=== PATIENT | male | born 1990 | race Caucasian/White ===

== ENCOUNTER → 2024-07-11 | Outpatient (CLI) | payer BC, OTHER ==
[2024-07-11 15:46] LABS: ALT 37 U/L (10-49); AST 27 U/L (14-35); Albumin 4.6 g/dL (3.8-4.9); Albumin/Globulin Ratio 1.84 Ratio (1.60-3.17); Alkaline Phosphatase 76 U/L (41-126); Blood Urea Nitrogen 14.8 mg/dL (9.0-27.0); Calcium 9.9 mg/dL (8.7-10.3); Carbon Dioxide 27.8 mmol/L (21.6-31.8); Chloride 102 mmol/L (96-109); Chol/HDL Ratio 5.35 Ratio; Globulin 2.5 g/dL (1.6-3.3); Glucose 98 mg/dL (70-110); LDL Cholesterol,Calculated 124.5 mg/dL (0.0-131.0); Potassium 4.8 mmol/L (3.5-5.5); Sodium 139 mmol/L (135-145); T4, Free (Free Thyroxine) 1.54 ng/dL (0.80-1.80); Total Bilirubin 0.3 mg/dL (0.3-1.2); Total Protein 7.1 g/dL (6.2-8.2)
[2024-07-11 15:58] LABS: Appearance,Urine Clear (Clear); Bilirubin,Urine Negative (Negative); Blood,Urine Negative (Negative); Color,Urine Yellow (Yellow); Ketones,Urine Negative (Negative); Nitrite,Urine Negative (Negative); Specific Gravity,Urine 1.021 (1.001-1.030); Urobilinogen,Urine 0.2 E.U./DL
[2024-07-11 17:01] LABS: Basophils # (A) 0.03 X 10*3/uL (0.00-0.10); Basophils % (A) 0.5 %; Eosinophils # (A) 0.11 X 10*3/uL (0.04-0.35); HCT 44.8 % (39.6-50.0); HGB 15.2 g/dL (13.0-17.0); Lymphocytes # (A) 2.58 X 10*3/uL (0.90-5.00); MCH 29.1 pg (27.0-32.0); MCHC 33.9 g/dL (32.0-37.0); MCV 85.8 FL (80.0-97.0); Mean Platelet Volume 9.7 FL (9.5-12.2); Monocytes # (A) 0.57 X 10*3/uL (0.20-1.00); Monocytes % (A) 10.4 %; NRBC Per 100 WBC 0 X 10*3/uL (0.00-0.01); Neutrophils # (A) 2.18 X 10*3/uL (1.80-7.70); Neutrophils % (A) 39.7 %; Platelet Count 299 X 10*3/uL (140-440); RBC 5.22 X 10*6/uL (4.40-5.60); RDW 12.1 % (11.5-14.5); WBC 5.49 X 10*3/uL (4.50-10.00)
== END | disposition home or self-care (01) ==
LOC: LABWHC1 09:32
PROVIDERS: ATTEND Family Medicine
DX: Z00.00 Encounter for general adult medical examination without abnormal findings
CPT/HCPCS: 36415; 80053; 80061; 81003; 82306; 83825; 84439; 84443; 85025

== ENCOUNTER → 2024-08-22 | Outpatient (CLI) | payer BC, OTHER ==
--- NOTE | 2024-08-24 15:18 | MR ---
EXAMINATION TYPE: MR lumbar spine wo con DATE OF EXAM: 08/22/2024 8:46 PM COMPARISON: 08/15/2024. CLINICAL INDICATION: Male, 33 years old with history of M54.16, M54.50; PHH, Lower back pain, center and into right hip TECHNIQUE: Multi planar, multi sequence imaging was performed utilizing: T1-weighted, T2-weighted, a nd turbo inversion recovery imaging of the lumbar spine. IV Contrast: cc . (None if empty) FINDINGS: Alignment: The lumbar vertebral bodies have preserved heights and alignment. Cord: The conus medullaris and the distal spinal cord appear unremarkable with regards to their signa l intensity and morphology. Bones/Discs: Postsurgical changes at L4-L5 susceptibility artifact. Mild degeneration changes through out the spine with osteophyte formation and facet joint arthropathy. Intervertebral disc signal is ma intained. No abnormal inversion recovery signal to suggest bony edema. T12-L1: No evidence of significant spinal canal stenosis or neural foraminal stenosis. L1-L2: No evidence of significant spinal canal stenosis or neural foraminal stenosis. L2-L3: No evidence of significant spinal canal stenosis or neural foraminal stenosis. L3-L4: No evidence of significant spinal canal stenosis or neural foraminal stenosis. L4-L5: Susceptibility artifact limits evaluation at this level. The spinal canal and neural foramen a ppear patent. L5-S1: Susceptibility artifact limits evaluation at this level. The spinal canal and neural foramen a ppear patent. Narrowing of the right neural foramen greater than left at least moderate grade No significant spinal canal or neural foraminal stenosis in the remainder of the visualized levels. Other findings: None. IMPRESSION: 1. Postsurgical changes L4-L5 with moderate right neural foraminal stenosis. No additional evidence for significant spinal canal neural foraminal stenosis. No evidence for disc herniation. 2. Mild disc degeneration changes throughout the spine. [facility], , 08/24/2024 3:16 PM
== END | disposition home or self-care (01) ==
LOC: RADMRIMAIN 20:15
PROVIDERS: ATTEND Orthopaedic Surgery
CPT/HCPCS: 72148

== ENCOUNTER → 2024-09-01 | Outpatient (CLI) | payer BC, OTHER ==
[~2024-09-01] MED LIST: ATROPINE SULFATE 0.1 MG/ML 10ML SYRINGE ONE; DOBUTamine DRIP for NUC MED 500 MG in DEXTROSE/WATER 1 250ML.BAG IV PRN; DOBUTamine DRIP for NUC MED 500 MG/250 ML BAG IV ONE
--- NOTE | 2024-09-01 17:21 | CA ---
Dobutamine Stress Echocardiogram Report Shamir Campos Age: 33 Gender: M : 1990 Exam Date: 09/01/2024 11:40 Exam Location: [place] [facility] Ordering Physician: Sukhdeep Walker DO Referring Physician: MAGNUS, Optometric Tech: Wade Bennett Technologist: Ht (in): 69 Wt (lb): 193 Procedure CPT: Indication: R07.9 CHEST PAIN ICD-9 Codes: Rhythm: Patient History: Chest pain Cardiac Medications: Medications in past 24 hours: Contrast: Total Dose (mL): Stress Results Protocol: Dobutamine Peak Dose (???g/kg/min): 40 Duration (min:sec): Atropine:(mg) Target HR: 160 Double Product: 57826 Resting HR: 68 Resting BP: 121 / 77 Peak HR: 155 Peak BP: 174 / 45 Max Predicted HR: 188 82 % Max Predicted HR Stress Summary: BP Response: Reason for Termination: Max dose Cardiac Symptoms: Chest pain #2 that resolved ECG Analysis Resting EKG: Normal sinus rhythm normal axis normal intervals Stress EKG: Patient was given intravenous dobutamine per protocol achieving 82% of predicted maximal heart rate without chest pain or diagnostic ST segment depression Arrhythmia: Echo Analysis Base Echo Analysis: Normal left ventricular size wall motion systolic function Low Echo Anaylsis: Normal Peak Echo Analysis: Normal hyperdynamic response Recovery Echo: Normal MEASUREMENTS (Male/Female) Normal Values CONCLUSIONS Inconclusive dobutamine stress echo due to inability to attain target heart rate 8082% of predicted maximal heart rate there is no dobutamine induced wall motion abnormality Dr. Watson Martinez MD (Electronically Signed) Final Date: 01 September 2024 17:20
== END | disposition home or self-care (01) ==
LOC: RADNMMAIN 09:47
PROVIDERS: ATTEND Family Medicine
DX: R07.9 Chest pain, unspecified (principal)
CPT/HCPCS: 93351

== ENCOUNTER → 2024-09-14 | Outpatient (CLI) | payer BC, OTHER ==
--- NOTE | 2024-09-14 11:28 | CT ---
EXAMINATION TYPE: CT lumbar spine wo con CT DLP: 785.9 mGycm, Automated exposure control for dose reduction was used. DATE OF EXAM: 09/14/2024 11:07 AM COMPARISON: MRI lumbar spine 08/22/2024. CLINICAL INDICATION:Male, 33 years old with history of M54.16 RADICULOPATHY M48.061; PHH, back pain TECHNIQUE: Multiple axial images were obtained from the midportion of T11 through the sacroiliac juana nts. Soft tissue and bone windows in coronal and sagittal planes were obtained and reviewed. Contrast used: none. Oral contrast used: none. FINDINGS: Alignment: There are 5 lumbar type vertebral bodies within normal alignment. Bone: Postsurgical changes from posterior fusion with bilateral pedicular screws and rods and disc s pacer involving L5-S1. Hardware creates streak artifact which limits evaluation. Hardware appears int act with appropriate alignment. No evidence of fracture is identified. Discs: T12-L1: No spinal canal or neural foraminal stenosis is identified. L1-L2: No spinal canal or neural foraminal stenosis is identified. L2-L3: No spinal canal or neural foraminal stenosis is identified. L3-L4: Minimal broad-based disc bulge without significant effacement of the anterior thecal sac. No n eural foraminal stenosis. L4-L5: Minimal broad-based disc bulge without significant effacement of the anterior thecal sac. Mini mal bilateral neural foraminal narrowing. L5-S1: Surgical changes without evidence of significant spinal canal. Minimal bilateral neural forami nal narrowing. Other: None IMPRESSION: 1. No evidence for acute spinal fracture. 2. Postsurgical changes from posterior fusion at L5-S1. Hardware appears intact with proper alignment . 2. Minimal lower lumbar spine degenerative disc disease. [facility], , 09/14/2024 11:26 AM
== END | disposition home or self-care (01) ==
LOC: RADCTMAIN 10:51
PROVIDERS: ATTEND Orthopaedic Surgery
DX: M51.16 Intervertebral disc disorders with radiculopathy, lumbar region (principal); M48.061 Spinal stenosis, lumbar region without neurogenic claudication; Z98.1 Arthrodesis status
CPT/HCPCS: 72131

== ENCOUNTER → 2024-11-07 | Outpatient (CLI) | payer BC, OTHER ==
[2024-11-07 11:37] VITALS: BP 138/91; PULSE 70; RESP 19; TEMP 96.8
--- NOTE | 2024-11-07 15:44 | P.PAINPG ---
PQRS Measure Charge Sheet Comment: HISTORY OF PRESENT ILLNESS: A 34 yr old male as a referral from Dr Rowland presents today w severe and chronic LBP > 1 yr secondary to L3-L5 radiculopathy, L5-S1 post laminectomy syndrome for evaluation. Pt states pain level is provoked at 6 /10 in intensity, constant, localized in the R lumbar spine, predominantly axial, achy in character w occasional shooting pain towards the RLE. Pain is provoked by hard impact activity. Pain is alleviated by PT x 6 wks which ended in 2022, physician guided home exercises 4-5 times weekly since 2022, ice, medications (muscle relaxer), repositioning and rest . Oswestry axial pain score at 24. PMH: OA, Hypothyroidism, Vitamin D Deficiency PSH: L5-S1 TLIF w CAGE SH: Negative x3 FH: Non contributory All: See list Meds: See list REVIEW OF ORGAN SYSTEMS: CONSTITUTIONAL: No fevers or chills. No recent weight loss. NEUROLOGICAL: + numbness and tingling along the distal extremities. No seizure disorders or headaches. MUSCULOSKELETAL: + pain PSYCHIATRIC: Denies current depression or suicidal thoughts. Physical Examinations : Constitutional : Cooperative , not in acute distress . Neurologic : Cranial nerve II to XII intact. No focal neurological deficits. Psychiatric : alert & oriented x 3. Matching mood & appropriate affect. Judgment & insight intact. Musculoskeletal : Cervical Spine Motor strength in the deltoid and biceps: Normal right side. Normal Left side Motor strength biceps and the wrist extensors: Normal right side . Normal left side Motor strength in the triceps muscle: Normal right side. Normal left side Deep tendon reflexes: Normal at the biceps. Normal at Brachioradialis. Normal at triceps Vertebral body tenderness to deep palpation over Cervical facet loading test: positive bilaterally Spurling test: positive bilaterally Neck distraction test: positive bilaterally Niko sign: positive bilaterally Lumbar spine Motor strength lower extremities ,thigh and legs 5/5 Right side , 5/5 Left side Deep tendon reflexes : Normal Knee Jerk. Normal Ankle Jerk Vertebral body tenderness over L5 Cm Test positive R L5-S1 Lumbar facet Loading Test: positive Right / positive Left Range of motion of the lumbar spine Flexion 30 degrees, extension 10 degrees Straight Leg Raise test: Left/ Right positive at degrees Warren test: positive right / positive left. Severe tenderness over the Sacroiliac joint on the Right / Left sides Gaenslen test: positive bilaterally Seated flexion test: positive bilaterally. Sacral spine : Severe tenderness over the Sacroiliac joint: right side / left side Range of motion: Flexion of the lumbar spine <60 degrees Range of motion: Extension of the lumbar spine <20 degrees Gaenslen's Test positive Warren test: positive right side / left side Thigh Thrust Test Sacral Thrust Test Imaging: CT non contrast lumbar spine from 09/14/24 reviewed Assessment/ Plan : L3-L5 radiculopathy, L5-S1 post laminectomy syndrome Recommendation of R TFESI L5-S1 #1. Risks, benefits of procedure discussed and patient verbalized understanding. Admits to anti- coagulant use or medical history of diabetes. Protocol for discontinuation/ continuation of medications lorenzo procedure discussed. All questions answered. I have spent greater than 30 minutes on patient care today. Dr Duffy was available by phone for the evaluation of this patient. The time was used to review the medical records including relevant urine studies and Prescription history (MAPs), review of the available imaging, evaluation and examination of the patient, coordination of care with the medical staff and if applicable referring physicians, as well as creation of the medical record Controlled Substance Measures - Controlled Substance Measures Is patient prescribed a controlled substance at discharge?: No
== END ==
LOC: PNWHC3 10:42
PROVIDERS: ATTEND Specialist
DX: M96.1 Postlaminectomy syndrome, not elsewhere classified (principal); M47.27 Other spondylosis with radiculopathy, lumbosacral region
CPT/HCPCS: 99211

== ENCOUNTER 2024-11-15 07:42 | Day surgery (SDC) | payer OTHER ==
[~2024-11-15 07:42] MED LIST changes: -ATROPINE SULFATE 0.1 MG/ML 10ML SYRINGE ONE; -DOBUTamine DRIP for NUC MED 500 MG in DEXTROSE/WATER 1 250ML.BAG IV PRN; -DOBUTamine DRIP for NUC MED 500 MG/250 ML BAG IV ONE; +LACTATED RINGERS 1,000 ML IV SCH
[2024-11-15 08:07] VITALS: TEMP 98
[2024-11-15] MEDS ORDERED: IOPAMIDOL M300 15ML VIAL ONE (08:27)
[2024-11-15] MEDS ORDERED: DEXAMETHASONE SOD PHOSPHATE 10 MG/ML 1 ML VIAL ONE (08:27)
[2024-11-15 08:54] VITALS: RESP 16
--- NOTE | 2024-11-15 08:57 | P.PCN ---
Description of Procedure: PREOPERATIVE DIAGNOSIS: 1-Lumbar radiculopathy . 2-lumbar degenerative disc disease. 3-lumbar spondylosis with lumbar facet arthropathy without myelopathy POSTOPERATIVE DIAGNOSIS: 1-lumbar radiculopathy. 2-lumbar degenerative disc disease. 3-lumbar spondylosis with facet arthropathy without myelopathy PROCEDURE 1. Transforaminal epidural steroid injection under fluoroscopic guidance at RIGHT L5-S1 level. (Fluoroscopy images stored on file in the radiology Department ) 2. Lumbar epidurogram . ANESTHESIA: Local with 1% lidocaine 5 ml. subcutaneously. Continuous pulse ox, EKG, blood pressure and verbal communication was maintained with the patient. EBL: Minimal PROCEDURE INDICATION: The patient with low back pain and radiculopathy symptoms unresponsive to conservative treatment. The patient was seen and identified in the preoperative area. Risks, benefits, complications, and alternatives were discussed with the patient. The patient agreed to proceed with the procedure and signed the consent. IV was started, and vital signs were stable. PROCEDURE DESCRIPTION / TECHNIQUE: After getting consent, patient was taken to the OR and time out was completed. The patient was placed in the prone position on procedure table and a pillow was placed under the abdomen to reduce lumbar lordosis. The lumbosacral area was prepped and draped in the usual sterile fashion. Critical pause was taken. After injecting 5 mL of plain 1% lidocaine subcutaneously, under oblique view of the fluoroscope, a 22-gauge spinal needle was introduced under the tunnel view of the fluoroscope on the RIGHT side and the needle was advanced so that the tip of the needle was at the posterior inferior quadrant of the intervertebral foramen at the lateral view of the fluoroscope and in the lateral third of the facet column in the AP view of the fluoroscope. Negative CSF, negative blood, negative paresthesia. After needle position confirmation by AP and cross table lateral view, 3 mL of Isovue-M 200 contrast was injected under continuous fluoroscope. No contrast was noted in the intrathecal or intravascular space. The epidurogram was noted. Again after repeated negative aspiration 2.5 mL solution was injected which consists 0.5 mL of normal saline mixed with 2 mL of 20 mg dexamethasone. Needle was removed . At the end of the procedure, skin was cleansed, and bandages were applied. DISPOSITION / PLANS: No complication. The patient tolerated the procedure well. The patient was placed in a supine position and transferred to the recovery area in a stable condition for observation. There was no evidence of lower extremity motor or sensory deficit after the procedure. Patient was discharged from the recovery room after meeting discharge criteria. Home discharge instructions were given to the patient by the staff. The patient was reexamined prior to discharge.
--- NOTE | 2024-11-15 09:02 | FL ---
EXAMINATION TYPE: FL guided pain mgmt statistic DATE OF EXAM: 11/15/2024 CLINICAL HISTORY: Low back pain. TECHNIQUE: Fluoroscopy. COMPARISON: None. FINDINGS: Fluoroscopic guidance was provided during pain relief procedure performed by Dr. Seaman. A total of 24.4 seconds of fluoroscopic time was utilized during the procedure and two spot images are acquired. Images acquired shows needle localization at the lumbosacral junction of the midline with postsurgical changes at this level noted. TOTAL DAP = 0.35011 mGy x m2. IMPRESSION: As Above. [facility], , 11/15/2024 9:00 AM
[2024-11-15 09:08] VITALS: BP 139/79; PULSE 85
== END 2024-11-15 09:24 | disposition home or self-care (01) ==
LOC: ORPAIN 07:42
PROVIDERS: ATTEND Pain Medicine Interventional Pain Medicine
DX: M47.26 Other spondylosis with radiculopathy, lumbar region (principal); M51.16 Intervertebral disc disorders with radiculopathy, lumbar region
CPT/HCPCS: 64483; J1100; Q9967

== ENCOUNTER → 2024-11-29 | Outpatient (CLI) | payer OTHER ==
[2024-11-29 14:38] VITALS: BP 121/75; PULSE 72; RESP 16; TEMP 98.1
--- NOTE | 2024-11-29 16:33 | P.SLEEP ---
History of Present Illness H&P Date: 11/29/24 This is a 34-year-old , who is coming in to establish care regarding his obstructive sleep apnea. The patient was diagnosed having CJ in the [facility] more than a year ago. The patient was given a ResMed 10 CPAP unit and based on my review of the compliance data on his machine, the patient has not utilized the machine over the past 1 year. The patient's original polysomnography report is not available. He apparently had a home sleep study back then at the time of diagnosis. He did benefit from CPAP therapy and he is wearing to go back on treatment as long as he has the appropriate mask and tubing and supplies. I noted that the patient has been using DreamWear nasal mask medium sizeand a headgear. He is APAP is set at a pressure of 4/16 cm of water. Based on the 2 days of usage on his machine, the patient had a 95th percentile pressure of 7 and his AHI was less than 1. The patient is very much interested in going back on treatment. No recent weight gain. Now that he is off treatment, his snoring and is feeling more tired and sleepy during the day. He goes to bed between 8 and 10 PM and wakes up at 3 AM in the morning. He carries the same sleep schedule on weekends. His current De Graff score is at 3. He sleeps on his side. No sleep paralysis. No hallucinations. No cataplexy. No excessive utilization of alcoholic or caffeinated beverages. No nocturnal heartburn or chest pain. No anxiety or panic attacks. No depression. He has a history of Khadijah's thyroiditis and the patient is currently on thyroid hormone replacement. He has also undergone previous back surgery involving the cervical spine and lumbar spine with fusions. Review of Systems Constitutional: Reports daytime sleepiness, Reports fatigue Eyes: denies as per HPI, denies blurred vision, denies bulging eye, denies decreased vision, denies diplopia, denies discharge, denies dry eye, denies irritation, denies itching, denies pain, denies photophobia, denies loss of peripheral vision, denies loss of vision, denies tunnel vision/blind spots Ears: deny: decreased hearing, ear discharge, earache, tinnitus Ears, nose, mouth and throat: Reports as per HPI Breasts: absent: as per HPI, gynecomastia Cardiovascular: Reports as per HPI Respiratory: Reports sleep apnea, Reports snoring Gastrointestinal: Reports as per HPI Genitourinary: Reports as per HPI Musculoskeletal: Reports low back pain Musculoskeletal: absent: ankle pain, ankle stiffness, ankle swelling, as per HPI, elbow pain, elbow stiffness, elbow swelling, foot pain, foot stiffness, foot swelling, hand pain, hand stiffness, hand swelling, hip pain, hip stiffness, hip swelling, knee pain, knee stiffness, knee swelling, shoulder pain, shoulder stiffness, shoulder swelling, wrist pain, wrist stiffness, wrist swelling Integumentary: Reports as per HPI Neurological: Reports as per HPI, Reports gait dysfunction Psychiatric: Reports hypersomnia, Reports sleep disturbances Endocrine: Reports as per HPI, Reports fatigue Hematologic/Lymphatic: Reports as per HPI Past Medical History Past Medical History: Hearing Disorder / Deafness, Hyperlipidemia, Sleep Apnea/CPAP/BIPAP, Thyroid Disorder Additional Past Medical History / Comment(s): juana tinnitus, partial hearing loss, no hearing aids; has CPAP but not currently using; no meds for high chol., degenertative arthritis History of Any Multi-Drug Resistant Organisms: None Reported Past Surgical History: Back Surgery Additional Past Surgical History / Comment(s): 2 spinal fusions Jul 2023 & December 2022; vasectomy; lasik eye surg; wisdom teeth removed Past Anesthesia/Blood Transfusion Reactions: Previous Problems w/ Anesthesia Additional Past Anesthesia/Blood Transfusion Reaction / Comment(s): woke up during back surg & then hard to wake up after back surg; intermittent periods of stopping breathing and later diagnosed with sleep apnea Past Psychological History: Anxiety Smoking Status: Never smoker Past Alcohol Use History: Rare Past Drug Use History: None Reported - Past Family History Mother Family Medical History: Thyroid Disorder Medications and Allergies Home Medications Medication Instructions Recorded Confirmed Type Levothyroxine Sodium [Synthroid] 150 mcg PO DAILY 11/11/24 11/29/24 History diazePAM [Valium] 5 mg PO ONCE 11/15/24 11/15/24 History Allergies Allergy/AdvReac Type Severity Reaction Status Date / Time No Known Allergies Allergy Verified 11/15/24 07:57 Physical Exam Vitals: Vital Signs Temp Pulse Resp BP Pulse Ox 11/29/24 14:37 98.1 F 72 16 121/75 98 Intake and Output 11/29/24 11/29/24 11/29/24 06:59 14:59 22:59 Other: Weight 89.811 kg The patient appeared well nourished and normally developed. Vital signs as documented. Head exam is unremarkable. No scleral icterus or corneal arcus noted. Neck is without jugular venous distension, thyromegaly, or carotid bruits. Carotid upstrokes are brisk bilaterally. Lungs are clear to auscultation and percussion. Cardiac exam reveals the PMI to be normally sized and situated. Rhythm is regular. First and second heart sounds normal. No murmurs, rubs or gallops. Abdominal exam reveals normal bowel sounds, no masses, no organomegaly and no aortic enlargement. Extremities are nonedematous and both femoral and pedal pulses are normal. Examination of the skin revealed no evidence of significant rashes, suspicious appearing nevi or other concerning lesions. Neurologically, the patient is awake and alert and the patient does not have any focal neurological deficit. Cranial nerves are essentially intact. Assessment and Plan Plan: Obstructive sleep apnea. Diagnosis established years back in the [facility]. Original polysomnography is not available. The patient has a APAP machine set at a pressure of 4/16 cm of water along with a DreamWear nasal mask. The patient states that while on treatment, he was feeling less sleepy and tired and fatigued. He is interested in going back on his treatment as long as he has been appropriate supplies. No recent weight gain. Hyperlipidemia Partial hearing loss Chronic back pain and the patient has undergone a cervical spine and lumbar spine fusion Khadijah's thyroiditis, currently on thyroid hormone replacement. Plan I checked the patient's CPAP unit. The machine is functional. I am going to switch to APAP mode to a minimum pressure of 4 and a maximum pressure of 8 I am going to provide the DreamWear nasal mask medium size Patient will go back on using his CPAP unit and meanwhile a home sleep study will be ordered to reestablish the diagnosis and its severity. Maintain good sleep hygiene measures Maintain regular sleep schedule Will continue to follow Sleep Note - Sleep Data ESS Total: 3 - Sleep Note Sleep Note: Temperature: 98.1 F Pulse Rate: 72 Respiratory Rate: 16 Blood Pressure: 121/75 SpO2: 98 Height: 67 ft 6 in Weight: 89.811 kg BMI: Neck Circumference: 15.5
== END ==
LOC: 3 N SLEEP 13:41
PROVIDERS: ATTEND Internal Medicine Critical Care Medicine
DX: G47.33 Obstructive sleep apnea (adult) (pediatric) (principal); E78.5 Hyperlipidemia, unspecified; H91.90 Unspecified hearing loss, unspecified ear; M54.50 Low back pain, unspecified; G89.29 Other chronic pain; M43.26 Fusion of spine, lumbar region; M43.22 Fusion of spine, cervical region; E06.3 Autoimmune thyroiditis; Z99.89 Dependence on other enabling machines and devices
CPT/HCPCS: 99211

== ENCOUNTER → 2024-12-08 | Outpatient (CLI) | payer OTHER ==
--- NOTE | 2024-12-18 23:00 | P.PCN ---
Date of Procedure: 12/08/24 Operative Findings: This is a 34-year-old , who is coming in to establish care regarding his obstructive sleep apnea. The patient was diagnosed having CJ in the [facility] more than a year ago. The patient was given a ResMed 10 CPAP unit and based on my review of the compliance data on his machine, the patient has not utilized the machine over the past 1 year. The patient's original polysomnography report is not available. He apparently had a home sleep study back then at the time of diagnosis. He did benefit from CPAP therapy and he is wearing to go back on treatment as long as he has the appropriate mask and tubing and supplies. I noted that the patient has been using DreamWear nasal mask medium sizeand a headgear. He is APAP is set at a pressure of 4/16 cm of water. Based on the 2 days of usage on his machine, the patient had a 95th percentile pressure of 7 and his AHI was less than 1. The patient is very much interested in going back on treatment. No recent weight gain. Now that he is off treatment, his snoring and is feeling more tired and sleepy during the day. He goes to bed between 8 and 10 PM and wakes up at 3 AM in the morning. He carries the same sleep schedule on weekends. His current [place] score is at 3. He sleeps on his side. No sleep paralysis. No hallucinations. No cataplexy. No excessive utilization of alcoholic or caffeinated beverages. No nocturnal heartburn or chest pain. No anxiety or panic attacks. No depression. He has a history of Khadijah's thyroiditis and the patient is currently on thyroid hormone replacement. He has also undergone previous back surgery involving the cervical spine and lumbar spine with fusions. For now, the patient is using his APAP machine with adequate compliancy. A polysomnography was ordered to reestablish diagnosis and severity. Pertinent physical findings Body mass index is 30.6 Technical description The ResMed ApneaLink system was used to complete his home sleep study. This is a type III home sleep study evaluation. Recording was done and a total of 9 hours and 56 minutes. The study started at 8:42 PM and ended at 6:38 AM. There was a total of 9 hours and 44 minutes of flow monitoring and a total of 9 hours and 41 minutes of oxygen saturation monitoring. Results Respiratory analysis showed a total of 9 obstructive hypopneas and 1 obstructive apnea. The resulting AHI was 1.0. No central apneas were noted Oxygenation analysis The patient was able to maintain an oxygen saturation above 90% throughout the sleep study. The baseline pulse ox while awake was 98%. Average pulse ox during sleep was 95%. Cardiac summary The average heart rate was 73 with a minimum heart rate of 54 and a maximum heart rate of 112 Assessment History of obstructive sleep apnea. Diagnosis established years back in the [facility]. Original polysomnography is not available. The patient has a APAP machine set at a pressure of 4/16 cm of water along with a DreamWear nasal mask. The patient states that while on treatment, he was feeling less sleepy and tired and fatigued. He is interested in going back on his treatment as long as he has been appropriate supplies. No recent weight gain. Nevertheless, the current home sleep study shows no evidence of any significant sleep breathing disorder. The patient's primary snoring with an AHI of 1.0. It is possible that the patient has recovered from his sleep apnea. Hyperlipidemia Partial hearing loss Chronic back pain and the patient has undergone a cervical spine and lumbar spine fusion Khadijah's thyroiditis, currently on thyroid hormone replacement. Plan I do not see the need for ongoing CPAP therapy in this patient. Nevertheless, the patient reports that he feels better and less tired while on treatment. I checked the patient's CPAP unit. The machine is functional. I had already switched the patient's machine to a APAP mode to a minimum pressure of 4 and a maximum pressure of 8, and he is using a DreamWear nasal mask, medium size. Ongoing treatment with APAP therapy is optional for this patient as long as there is no significant sleep breathing disorder Maintain good sleep hygiene measures Maintain regular sleep schedule Will continue to follow, will discuss the findings with the patient.
== END ==
LOC: 3 N SLEEP 16:42
PROVIDERS: ATTEND Internal Medicine Critical Care Medicine
DX: R06.83 Snoring (principal); E78.5 Hyperlipidemia, unspecified; G89.29 Other chronic pain; H91.90 Unspecified hearing loss, unspecified ear; M43.22 Fusion of spine, cervical region; M43.26 Fusion of spine, lumbar region; E06.3 Autoimmune thyroiditis; Z87.09 Personal history of other diseases of the respiratory system

== ENCOUNTER → 2025-01-13 | Outpatient (CLI) | payer OTHER ==
[2025-01-13 15:11] LABS: HCT 44.6 % (39.6-50.0); HGB 14.8 g/dL (13.0-17.0); MCHC 33.2 g/dL (32.0-37.0); MCV 87.3 FL (80.0-97.0); Mean Platelet Volume 9.4 FL (9.5-12.2); NRBC Per 100 WBC 0 X 10*3/uL (0.00-0.01); Platelet Count 303 X 10*3/uL (140-440); RBC 5.11 X 10*6/uL (4.40-5.60); RDW 12.7 % (11.5-14.5); WBC 7.11 X 10*3/uL (4.50-10.00)
[2025-01-13 15:12] LABS: Blood Urea Nitrogen 21.9 mg/dL (9.0-27.0); Carbon Dioxide 27.1 mmol/L (21.6-31.8); Chloride 103 mmol/L (96-109); Glucose 97 mg/dL (70-110); Potassium 4.6 mmol/L (3.5-5.5); Sodium 140 mmol/L (135-145)
[2025-01-13 15:13] LABS: ALT 35 U/L (10-49); AST 25 U/L (14-35); Albumin 4.5 g/dL (3.8-4.9); Albumin/Globulin Ratio 1.67 Ratio (1.60-3.17); Alkaline Phosphatase 79 U/L (41-126); Calcium 9.4 mg/dL (8.7-10.3); Globulin 2.7 g/dL (1.6-3.3); Total Bilirubin 0.4 mg/dL (0.3-1.2); Total Protein 7.2 g/dL (6.2-8.2)
[2025-01-13 17:55] LABS: INR <0.93 sec (0.93-1.11); Prothrombin Time 10.6 sec (9.9-11.9)
== END | disposition home or self-care (01) ==
LOC: LABPAT 08:16
PROVIDERS: ATTEND Orthopaedic Surgery
DX: Z01.818 Encounter for other preprocedural examination (principal); I10 Essential (primary) hypertension; I44.0 Atrioventricular block, first degree; M54.50 Low back pain, unspecified; R58 Hemorrhage, not elsewhere classified; Z79.899 Other long term (current) drug therapy
CPT/HCPCS: 80053; 85027; 85610; 93005

== ENCOUNTER → 2025-01-17 | Outpatient (CLI) | payer OTHER ==
[2025-01-17 15:27] VITALS: BP 147/84; PULSE 86; RESP 16; TEMP 98.1
--- NOTE | 2025-01-17 16:19 | P.PN ---
Progress Note - Text Progress Note Date: 01/17/25 This is a 34-year-old , who is coming in to establish care regarding his obstructive sleep apnea. The patient was diagnosed having CJ in the [facility] more than a year ago. The patient was given a ResMed 10 CPAP unit and based on my review of the compliance data on his machine, the patient has not utilized the machine over the past 1 year. The patient's original polysomnography report is not available. He apparently had a home sleep study back then at the time of diagnosis. He did benefit from CPAP therapy and he is wearing to go back on treatment as long as he has the appropriate mask and tubing and supplies. I noted that the patient has been using DreamWear nasal mask medium sizeand a headgear. He is APAP is set at a pressure of 4/16 cm of water. Based on the 2 days of usage on his machine, the patient had a 95th percentile pressure of 7 and his AHI was less than 1. The patient is very much interested in going back on treatment. No recent weight gain. Now that he is off treatment, his snoring and is feeling more tired and sleepy during the day. He goes to bed between 8 and 10 PM and wakes up at 3 AM in the morning. He carries the same sleep schedule on weekends. His current [place] score is at 3. He sleeps on his side. No sleep paralysis. No hallucinations. No cataplexy. No excessive utilization of alcoholic or caffeinated beverages. No nocturnal heartburn or chest pain. No anxiety or panic attacks. No depression. He has a history of Khadijah's thyroiditis and the patient is currently on thyroid hormone replacement. He has also undergone previous back surgery involving the cervical spine and lumbar spine with fusions. For now, the patient is using his APAP machine with adequate compliancy. A polysomnography was ordered to reestablish diagnosis and severity. Based on based on those symptoms, the patient underwent a home sleep study that was completed on 12/08/2024. This was an adequate study as the patient had more than 9 hours of recording of flow and oxygen saturation. The patient had no significant sleep breathing disorder. The patient had a total of 9 obstructive hypopneas and 1 obstructive apnea and the resulting AHI was 1. No significant nocturnal oxygen saturation was noted. Meanwhile, the patient is not using any CPAP therapy for now. He is feeling well. No specific complaints. His [place] score is currently at 7. We have not been able to get hold of his original home sleep study that was done in [place]. BP is 147/84 with a pulse of 86 and respiration of 16. Weight is 205 pounds and a body mass index is 30.2. Temperature is 98.1. Pulse ox on room air oxygen is 98%. Weight is 205 and a height is 5 feet and 9 inches The patient appeared well nourished and normally developed. Vital signs as documented. Head exam is unremarkable. No scleral icterus or corneal arcus noted. Neck is without jugular venous distension, thyromegaly, or carotid bruits. Carotid upstrokes are brisk bilaterally. Lungs are clear to auscultation and percussion. Cardiac exam reveals the PMI to be normally sized and situated. Rhythm is regular. First and second heart sounds normal. No murmurs, rubs or gallops. Abdominal exam reveals normal bowel sounds, no masses, no organomegaly and no aortic enlargement. Extremities are nonedematous and both femoral and pedal pulses are normal. Examination of the skin revealed no evidence of significant rashes, suspicious appearing nevi or other concerning lesions. Neurologically, the patient is awake and alert and the patient does not have any focal neurological deficit. Cranial nerves are essentially intact. Assessment Primary snoring, no evidence of any sleep breathing disorder Chronic back pain and the patient has undergone previous surgical and lumbar spine fusion Hyperlipidemia History of Khadijah thyroiditis and the patient remains on thyroid hormone replacement Plan No need for CPAP therapy based on the current study Clinically stable Will try to get a hold of his original home sleep study that was done in [place] back in July 2023 and compared to 2 studies together. My overall clinical suspicion for significant sleep apnea is low. Encourage weight loss. No need for CPAP therapy at this point. Maintain good sleep hygi shyam measures. Maintain regular sleep schedule. See me back in a years time in follow-up. Patient was agreeable to this current plan
== END ==
LOC: 3 N SLEEP 14:55
PROVIDERS: ATTEND Internal Medicine Critical Care Medicine
DX: G47.33 Obstructive sleep apnea (adult) (pediatric) (principal); G89.29 Other chronic pain; E78.5 Hyperlipidemia, unspecified; E06.3 Autoimmune thyroiditis; Z79.890 Hormone replacement therapy; Z98.1 Arthrodesis status
CPT/HCPCS: 99212

== ENCOUNTER 2025-01-24 07:46 | Day surgery (SDC) | payer OTHER ==
[2025-01-19 10:31] VITALS: BMI 29.5
[~2025-01-24 07:46] MED LIST changes: +LIDOCAINE 1% (10MG/ML) FOR IV START INTRADERMA PRN; +ONDANSETRON 4 MG/2 ML VIAL IVP PRN; +TRANEXAMIC 1,000 MG/100ML-NACL 1,000 MG in SALINE 1 100ML.BAG IVPB PRN; +fentaNYL (PF) 50 MCG/ML 2 ML AMP IVP PRN
[2025-01-24] MEDS: ONDANSETRON 4 MG/2 ML VIAL IVP ONE (08:15)
[2025-01-24] MEDS: GABAPENTIN 300 MG CAP PO PRN (08:15)
[2025-01-24] MEDS: ACETAMINOPHEN TAB 500 MG TAB PO PRN (08:15)
[2025-01-24] MEDS: DEXAMETHASONE SOD PHOSPHATE 4 MG/ML 1 ML VIAL IV ONE (08:15)
[2025-01-24] MEDS: IV FLUID CONTINUATION 1,000 ML IV ONE (08:26)
[2025-01-24] MEDS: MIDAZOLAM 2 MG/2 ML VIAL IV PRN (08:46)
[2025-01-24] MEDS ORDERED: SUCCINYLCHOLINE CHLORIDE 200 MG/10 ML VIAL IV ONE (08:57)
[2025-01-24] MEDS ORDERED: TRANEXAMIC 1,000 MG/100ML-NACL PREMIX BAG ONE (08:57)
[2025-01-24] MEDS ORDERED: LIDOCAINE 1% INJ 10MG/ML (20 ML MDV) ONE (08:57)
[2025-01-24] MEDS ORDERED: PROPOFOL 10 MG/ML 20 ML VIAL IV ONE (08:57)
[2025-01-24] MEDS ORDERED: MIDAZOLAM 2 MG/2 ML VIAL ONE (08:57)
[2025-01-24] MEDS ORDERED: LIDOCAINE 4% LTA KIT (4 ML) TOPICAL ONE (08:57)
[2025-01-24] MEDS ORDERED: GLYCOPYRROLATE 0.2 MG/ML 2 ML VIAL ONE (08:57)
[2025-01-24] MEDS ORDERED: KETOROLAC 15 MG/ML 1 ML VIAL ONE (08:57)
[2025-01-24] MEDS ORDERED: NEOSTIGMINE 1 MG/ML 10 ML VIAL ONE (08:57)
[2025-01-24] MEDS ORDERED: ROCURONIUM 10 MG/ML (5 ML VIAL) IV ONE (08:57)
[2025-01-24] MEDS ORDERED: fentaNYL (PF) 50 MCG/ML 2 ML AMP ONE (08:57)
--- NOTE | 2025-01-24 09:10 | P.HPOR ---
History of Present Illness H&P Date: 01/24/25 .D:Date: 12/14/24 : 03:54pm .T:Title: RECHECK H1 [facility] [address] [place] [id number]| PROVIDER: ROBERT CHAVEZ DO CLINICAL SUMMARY: 34-year-old male, Shamir Campos, presents for a follow-up evaluation of chronic lumbar pain following recent interventional procedures. Patient underwent L5-S1 LANETTE with no reported relief and L5-S1 facet block injection with noted symptomatic improvement. He continues to experience low back pain radiating to bilateral lower extremities (right > left) with associated paresthesias and progressive lower extremity weakness resulting in multiple falls. Patient has history of lumbar surgery (July 2023) with imaging showing postsurgical changes at L4-L5 with moderate right neural foraminal stenosis. Physical examination reveals paralumbar tenderness, restricted lumbar ROM, mild motor weakness (4/5) in bilateral lower extremities, and right calf atrophy. Assessment indicates L4-S1 facet arthrosis with mechanical low back pain. Treatment plan includes L4-S1 medial branch transection, prescription for Lyrica 150mg, continuation of home exercise program, and pre-operative evaluation. 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 Campos presents to the office today, 12/14/24, for a recheck of his lumbar pain and follow up after injections. Since last visit patient received an L5-S1 LANETTE with no relief and an L5-S1 facet block injection with relief. Patient continues to report low back pain that radiates into the bilateral lower extremities, associated with numbness and tingling. He does note that his right lower extremity is worse than the left. He notes progressive weakness of his legs and has had multiple falls. Patient underwent previous lumbar surgery in July 2023 in [place]. He is currently taking Motrin and Tylenol for his symptoms. Patient ambulates independently. * Patient denies any f/c/sob/cp, perineal numbness or tingling, bowel, or bladder incontinence/retention. * The patients past social, medical, family, surgical history, as well as review of systems, have been reviewed. Please refer to the History and Physical form that has been scanned into our electronic medical record system. * 16 points review of systems completed and as stated in HPI, all other systems reviewed are negative. PAST TREATMENTS: PAST IMAGING: -YES, MRI and CT - TRAUMA RELATED: -NO - WORK RELATED: -NO - PT IN LAST 6 MONTHS: -YES - PHYSICIAN DIRECTED HOME EXERCISE PROGRAM: -YES - ACTIVITY MODIFICATION: -YES - MEDICATIONS: -YES, Motrin and Tylenol - ALTERNATIVE INTERVENTIONS (CHIROPRACTIC, ACUPUNCTURE, MASSAGE, RICE): -YES - BRACING: -NO - INJECTIONS (LANETTE, TF, RFA): -YES, right transforaminal L5-S1 injection with no relief - MEDICAL HISTORY: Past Medical History: REVIEWED STATED IN CHART Past Surgical History: REVIEWED STATED IN CHART Social History: REVIEWED STATED IN CHART SMOKING: Never smoker ETOH: None SUBSTANCES: None Family History: REVIEWED STATED IN CHART P1 Current Medications: Rx: levothyroxine 150 mcg tablet Ref: 0 Instructions: take 1 tablet (150 mcg) by oral route once daily Rx: Vitamin D2 Ref: 0 Rx: Motrin Ref: 0 Rx: TylenoL Ref: 0 P1 PHYSICAL EXAM: General: AOX3, NAD, Well hydrate, well nourished, in no acute distress HEENT: No lumps or masses Extremities: No color changes, no pooling INTEGUMENT: Appearance: Normal color and turgor Surgical Incisions: Healed Hairy Patches: ABSENT Dorsal Skin Dimples: Normal [employer] spots: ABSENT PALPATION: TTP Midline: NO Paracervical: NO Parathoracic: NO Paralumbar: YES SIJ TESTING (Reid's, FABER4, Compression, Distraction, Thigh Thrust, Hip Thrus t): TESTED * POSITIVE FINDINGS: NEGATIVE FINDINGS: Reid's, FABER4, Compression, Distraction, Thigh Thrust, Hip Thrust POSTURAL BALANCE: Coronal: BALANCED Sagittal: BALANCED Shoulder height: LEVEL Pelvic Girdle: LEVEL ROM AND APPEARANCE: Neck: UNRESTRICTED Lumbar: RESTRICTED with pain Shoulders: Symmetrical Hips: Symmetrical Knees: Symmetrical Hands: Symmetrical Feet: Symmetrical VASCULAR STATUS: PALPABLE PULSES B/L UE AND LE 2/4 RAD/ULNAR/DP/PT Edema: NONE NEUROLOGICAL EXAMINATION: Mental Status: Awake, alert, fully oriented with normal attention, concentration, and memory. Fluent appropriate speech. CRANIAL NERVES: I: Olfactory not assessed. II: Visual acuity normal, no visual field deficit noted with confrontation. III, IV: Normal pupillary reflexes & intact extraocular movements without nystagmus. V, : Intact symmetrical facial sensation. VII: Intact symmetrical facial motor movement: Hearing intact. IX, X: Intact gag, swallow, & normal voice. XI: Sternocleidomastoid, trapezius function intact. XII: Tongue midline with normal movements. TENSIONING: * L'HERMITTE'S SIG:NEG SPURLUNG'S SIGN:NEG UPPER EXTREMITY TENSIONING SIGNS: NEG CUBITAL TUNNEL COMPRESSION:NEG TINELS AT WRIST:NEG STRAIGH LEG RAISE:NEG CONTRALATERAL STRAIGHT LEG RAISE: NEG MOTOR EXAM (0-5/5, NT) Muscle appearance: Symmetrical, without signs of atrophy or dystrophy SIGNS OF ATROPHY RIGHT CALF UPPER EXTREMITY RIGHT LEFT Shoulder Abduction 5 5 Biceps 5 5 Triceps 5 5 Wrist Extension 5 5 Hand Intrinsics 5 5 Service Assistant 5 5 LOWER EXTREMITY RIGHT LEFT Hip Flexion 4 4 Knee Extension 4 4 Knee Flexion 4 4 Dorsiflexion 4 4 Plantarflexion 4 4 EHL 4 4 FHL 4 4 REFLEXES (0-4/2, NT): RIGHT LEFT Bicep 2 2 Brachioradialis 2 2 Triceps 2 2 Patellar 2 2 Achilles 2 2 PATHOLOGICAL REFLEXES: RIGHT LEFT WASHINGTON'S ABSENT ABSENT CLONUS ABSENT ABSENT BABINSKI ABSENT ABSENT RECTAL TONE: INTACT/NT SENSATION (0-4, NT): Sensation intact to LT and Pain * C5-T1 distribution BUE * L2-S2 distribution BLE *Exceptions below* DERMATOMAL DEFICIT/RADICULAR PATTERN: GAIT AND FUNCTIONAL EVALUATION: AMBULATORY AID NONE ROMBERG'S TEST INTACT HAND AND FINGER DEXTERITY INTACT YES DYSDIADOCHOKINESIA EXAM NEG B/L YES TOE/HEEL WALK INTACT WITH GOOD BALANCE NO SQUAT AND RISE W/O ASSISTANCE TO 60 DEG KNEE FLEXION NO SINGLE LEG STANCE INTACT TRENDELENBURG NEG IMAGING: XRay Lumbar Multiview (AP, Lateral, Flexion, Extension) with AP pelvis; [facility]: Previous surgical hardware is present at L5-S1 to include prosthetic disc and rods and screws. Hardware is maintained with no migration or failure. There is multilevel diminished disc height throughout the lumbar spine. Vertebral body heights are preserved. No acute osseous abnormalities. Pelvis: The visualized sacrum and iliac wings are within normal limits. CT Date: 09/14/24 Location: [facility] Region: Lumbar Contrast: N IMAGES ARE REVIEWED WITH THE PATIENT IN OFFICE AND DEMONSTRATE THE FOLLOWING: FINDINGS: post surgical changes evident at L5-S1 with TLIF construc in place. There is minimal to no facet fusion noted with minimal bone formation anteriorly around the cage. There is motion still on the F/E films as well suggesting non- fusion. There is some haloing of the screws in S1 noted and are potentially loose. There are no fractures or lesions noted. MRI scancompleted [facility] from 08/22/24 of Lumbar Spine: IMPRESSION: 1. Postsurgical changes L4-L5 with moderate right neural foraminal stenosis. No additional evidence for significant spinal canal neural foraminal stenosis. No evidence for disc herniation. 2. Mild disc degeneration changes throughout the spine. IMPRESSION: It was my pleasure to have seen and examined Shamir. I reviewed the patient's cli nical syndrome, physical findings, and imaging studies during the appointment today. It is my impression that the patient has a diagnosis of. 1.L4-S1 facet arthrosis 2.Low back pain PLAN: DISCUSSION: -I have discussed with the patient their clinical signs and symptoms, imaging, and treatment options. We have discussed risks, benefits, potential outcomes and natural course as pertains top their issues. The patient understands and would like to proceed as follows below: SURGICAL RECOMMENDATION -L4-S1 medial branch transection THERAPIES -Cont. with home exercises and home PT exercises as able -Cont. with Heat/Ice as warranted -Cont. with supplementation Vit D, Vit C, Ca2+, High protein diet -OK for massage or other alternative treatment modalities as able. If it exacerbates your sx do not continue ACTIVITY -Recommend walking up to 30 min 2x daily on a flat easy surface with good support. -WORK STATUS: no restrictions MEDICATIONS -Rx: Lyrica 150mg #60 -Take as directed -Cont. home medications as directed by your PCP. Check with your PCP for any medication interactions or issues if needed. IMAGING -N/A INJECTIONS -N/A Spine Surgery Risk Review Mr. Campos is presenting for evaluation of lumbar pain. It was my pleasure to have seen and examined Mr. Campos. In our visit today we have had a chance to go over subjective complaints, physical examination findings and treatments including the natural course history without intervention and various interventional options. The patients imaging demonstrates: XRay Lumbar Multiview (AP, Lateral, Flexion, Extension) with AP pelvis; [facility]: Previous surgical hardware is present at L5-S1 to include prosthetic disc and rods and screws. Hardware is maintained with no migration or failure. There is multilevel diminished disc height throughout the lumbar spine. Vertebral body heights are preserved. No acute osseous abnormalities. Pelvis: The visualized sacrum and iliac wings are within normal limits. CT Date: 09/14/24 Location: [facility] Region: Lumbar Contrast: N IMAGES ARE REVIEWED WITH THE PATIENT IN OFFICE AND DEMONSTRATE THE FOLLOWING: FINDINGS: post surgical changes evident at L5-S1 with TLIF construct in place. There is minimal to no facet fusion noted with minimal bone formation anteriorly around the cage. There is motion still on the F/E films as well suggesting non- fusion. There is some haloing of the screws in S1 noted and are potentially loose. There are no fractures or lesions noted. MRI scancompleted [facility] from 08/22/24 of LumbarSpine: IMPRESSION: 1. Postsurgical changes L4-L5 with moderate right neural foraminal stenosis. No additional evidence for significant spinal canal neural foraminal stenosis. No evidence for disc herniation. 2. Mild disc degeneration changes throughout the spine. On physical exam, Mr. Cmapos demonstrates: Patient continues to report low back pain that radiates into the bilateral lower extremities, associated with numbness and tingling. He does note that his right lower extremity is worse than the left. He notes progressive weakness of his legs and has had multiple falls. Patient underwent previous lumbar surgery in July 2023 in [place]. He is currently taking Motrin and Tylenol for his symptoms. Patient ambulates independently. I have explained to the patient that as their condition progresses it will cause further neurological deficits and eventual paralysis. Based on the patients imaging, physical exam, and the rapid progression and disabling nature of their symptoms, at this time I recommend surgery in the form of a: L4-S1 medial branch transection. I discussed the risk and benefits of this procedure at length with Mr. Campos. The patient agreed to considered pursuing the procedure abovementioned. Prior to surgery, she should follow up with her PCP (Cardio, ID, IM etc) for clearance. Questions were invited and answered, and the patient wishes to proceed as outlined below. Currently, I am recommendin.L4-S1 medial branch transection 2.Follow up with PCP for surgical clearance 3.Review of surgical risks and benefits as well as an educational packet on the proposed surgical procedure. Risks: All surgical procedures come with inherent risks, including those related to positioning, anesthesia, intraoperative findings, and postoperative complications. It is important to understand that surgery does not come with any guarantee of a successful outcome as complications and adverse events are always possible. The patient was given a handout in office today discussing the surgical procedure and risks associated with the intervention, both of which were discussed with the patient. These risks include but are not limited to the following: * Experiencing same, different or even worse symptoms in back, neck, arms, or legs compared to before surgery. Requiring further surgery or other forms of treatment presently or at some time in the future at same or other levels of the intended spine surgery. On an extreme but fortunately relatively rare basis severe complication such as blindness, stroke, heart attack, temporary and/or permanent nerve injury, paralysis, coma, or may occur, sometimes without known explanation. Surgical complications may include but are not limited to risk of infectio n, fluid accumulation in the surgical dissection site, including a seroma or hematoma, that requires additional surgery, wound drainage, bleeding, new numbness or weakness, vision changes/loss, spinal fluid leakage, non-healing and/or infected incision, headaches, difficulty or inability to swallow, hoarseness, hemopneumothorax, pneumothorax, impotence, retrograde ejaculation, vaginal dryness; injury to nerves, spinal cord, blood vessels, lymphatics or other vital organs (i.e., bowel injury, injury to the great vessels); heterotopic bone formation; complications related to the hardware such as screws, rods, cages including misplaced hardware, device failure, instrumentation at the wrong spine level, hardware fracture/breakage, or hardware loosening; vertebral failure of the spinal column above or below the newly placed hardware; retained surgical instrumentations or devices and the need for further surgery. * Medical risks of the planned spine surgery include but are not limited to generalized Infections to the whole body or local areas outside of the surgical site (sepsis), heart attack, bleeding, anaphylaxis, meningitis, seizure, epilepsy, hearing loss, burn sutherland, laceration of the head or other areas of the body, bruising, hypersensitivity of the skin, bladder over distension; allergic reaction; shoulder injury related to positioning; fat, blood and air clots to other areas of the body like heart, lungs, brain; failure of internal organs such as lungs, kidneys, liver and excessive bleeding. If blood transfusions are necessary, note that transfusions may cause intolerance reactions such as anaphylaxis or other complex reactions. Despite best efforts, the results of spine surgery might not heal in terms of bone, soft tissues such as skin, fascia, ligaments, and joints. Additionally, in order to achieve best possible results, spine surgery may be carried out beyond the initially planned levels and involve decompression, fusion including insertion of hardware at levels other than the original intended area of surgical interest change some portions of the procedure in order to ensure the best possible outcomes. With spine surgery and spinal fusion, there are different off label uses of instrumentation (devices, implants and hardware) as well as biological substances (bone morphogenic proteins, demineralized bone matrix) as well as using extra bone from allograft sources (i.e. cadaver bone) or autograft (iliac crest bone, ribs, or the spine itself). The patient has been given information about these practices and their inherent risks and benefits. [facility] is an educational center that serves as a training facility for neurosurgical and orthopedic ENERGY OPERATIONS VICE PRESIDENT and Nursing students. Physician assistants are medically trained surgical providers who function in the outpatient, inpatient, and operating room setting under the direct supervision of the attending surgeon. [facility] has multiple operating rooms with single and overlapping rooms running daily. They currently function under the required guidelines as produced by the [facility] Finance Committee with regards to the overlapping rooms and will continue to comply with changes to this policy as they occur. The requirements include and are complied with as follows: (1) the critical portions of the overlapping rooms will not occur at the same time, (2) the attending physician will be physically present during the critical portions of the procedure and immediately available during the entire case, and (3) a back-up attending is designated should the primary attending not be immediately available. The patient has had a chance to review all the listed information, has been given print outs detailing this information, and has had all his/her questions answered to their satisfaction. It was my pleasure to have seen and examined Mr. Campos. In our visit today we have had a chance to go over my understanding of our patient's current condition, the natural course history without intervention and various interventional options. Questions were invited and answered, and the patient wishes to proceed as outlined above. I have seen and examined the patient for 25 minutes and we have spent more than 50% of the time in repeat and detailed counseling about the patient's condition, its natural course history with out and as much as can be predicted with surgery and re-review of various surgical treatment options. In conclusion, Mr. Campos requested we proceed with the above suggested surgery and are willing to accept risks and limitations of the suggested surgery as nature of the disease process and our best attempts at treatment for the condition. MEDICAL NECESSITY NOTE: Shamir Campos, a 34-year-old male, presents with debilitating chronic lumbar pain radiating to bilateral lower extremities (right > left) with documented progressive lower extremity weakness resulting in multiple falls. Previous interventions including L5-S1 LANETTE provided no relief, while facet block injections showed some improvement, indicating facet-mediated pain. Imaging studies reveal postsurgical changes at L4-L5 with moderate right neural foraminal stenosis, minimal to no facet fusion at L5-S1, and potential loose hardware in S1 as evidenced by haloing of screws. The patient's physical examination demonstrates paralumbar tenderness consistent with facet-mediated pain. Conservative measures including medication management with Motrin and Tylenol have failed to provide adequate symptom control. Given the patient's progressive neurological deficits, failed conservative management, and risk of further functional decline, an L4-S1 medial branch transection is medically necessary to address the patient's facet-mediated pain and prevent further n eurological deterioration. SURGICAL RATIONALE NOTE: The surgical approach of L4-S1 medial branch transection is indicated based on several gustafson clinical findings. First, the patient demonstrated positive response to diagnostic facet blocks, confirming facet joints as a primary pain generator. The CT imaging shows inadequate fusion at the L5-S1 level with minimal bone formation and potential hardware loosening, contributing to mechanical instability and facet-mediated pain. Additionally, the MRI confirms moderate right neural foraminal stenosis at L4-L5 that correlates with the patient's right-sided radicular symptoms. The medial branch transection procedure is specifically targeted to denervate the facet joints from L4 to S1, which should provide pain relief by interrupting the pain signals from these compromised structures. This minimally invasive approach is preferred over more extensive revision surgery at this time, as it addresses the patient's facet-mediated pain while avoiding the risks associated with hardware removal and replacement in the setting of a previous surgical site. The procedure offers a reasonable probability of significant pain reduction and functional improvement based on the patient's clinical presentation and positive response to diagnostic blocks. FOLLOW UP: Pre-Op PLAN AT NEXT VISIT: RECHECK PATIENT EDUCATION: Medications Reviewed: YES In our visit today Mr. Campos and I have had a chance to go over my understanding of the patient's current condition, the natural course history without intervention and various interventional options. Questions were invited and answered, and the patient wishes to proceed as outlined above. I will be sure to keep you updated after Mr. Campos returns here for further follow-up. Thank you again for your referral. Please do not hesitate to contact me if you have any further questions. Signed and authenticated by: Robert Mcghee [facility] [address] [place], [place] [id number] . This message is confidential, intended only for the named recipient(s) and may contain information that is privileged or exempt from disclosure under applicable law. If you are not the intended recipient(s), you are notified that the dissemination, distribution or copying of this information is prohibited. If you received this message in error, please notify the sender then delete this message. # SIGNED BY Robert Chavez (GOO)12/25/2024 11:59AM Past Medical History Past Medical History: Hearing Disorder / Deafness, Hyperlipidemia, Thyroid Disorder Additional Past Medical History / Comment(s): juana tinnitus, partial hearing loss, no hearing aids; no meds for high chol., degenertative arthritis History of Any Multi-Drug Resistant Organisms: None Reported Past Surgical History: Back Surgery Additional Past Surgical History / Comment(s): 2 spinal fusions Jul 2023 & December 2022; vasectomy; lasik eye surg; wisdom teeth removed Past Anesthesia/Blood Transfusion Reactions: Previous Problems w/ Anesthesia Additional Past Anesthesia/Blood Transfusion Reaction / Comment(s): woke up during back surg & then hard to wake up after back surg; intermittent periods of stopping breathing and later diagnosed with sleep apnea-STATES SLEEP APNEA IS RESOLVED AT THIS TIME Smoking Status: Never smoker - Past Family History Mother Family Medical History: No Reported History, Thyroid Disorder Medications and Allergies Home Medications Medication Instructions Recorded Confirmed Type Levothyroxine Sodium [Synthroid] 150 mcg PO DAILY 11/11/24 01/24/25 History Cyclobenzaprine [Flexeril] 10 mg PO TID PRN 12/09/24 01/24/25 History Pregabalin [Lyrica] 50 mg PO BID 01/17/25 01/24/25 History Allergies Allergy/AdvReac Type Severity Reaction Status Date / Time No Known Allergies Allergy Verified 01/24/25 07:58 Physical Examination Osteopathic Statement: *. No significant issues noted on an osteopathic structural exam other than those noted in the History and Physical/Consult.
[2025-01-24] MEDS: LIDOCAINE 2%-EPI 1:100,000 20 ML VIAL SQ ONE (09:29)
[2025-01-24] MEDS: BUPIVACAINE (PF) 0.5% 30 ML VIAL SQ ONE (09:29)
[2025-01-24] MEDS: LACTATED RINGERS 1,000 ML IV ONE (10:14)
[2025-01-24 10:35] VITALS: TEMP 97.6
--- NOTE | 2025-01-24 10:50 | FL ---
EXAMINATION TYPE: FL guidance operating room, XR lumbar spine 2 or 3V DATE OF EXAM: 01/24/2025 10:46 AM COMPARISON: Pre Operative Images if available both CT/MRI or plain film CLINICAL INDICATION: Male, 34 years old with history of L4 SACRAL 1 BILATERAL MEDIAL; TECHNIQUE: FL guidance operating room, XR lumbar spine 2 or 3V, multiple fluoroscopic images provided for procedure. DAP: 5.1803 mGym2 Gycm2 uGym2 cGycm2 or equivalent. FINDINGS: Fluoroscopic images during internal fixation/arthroplasty demonstrate hardware in appropriate positio n. Hardware appears intact. No immediate complication identified. IMPRESSION: 1. No evidence for intraoperative complication. 2. Please see the operative/procedural note for further details. [facility], , 01/24/2025 10:48 AM
[2025-01-24] MEDS: HYDROmorphone 0.5 MG/0.5 ML SYRINGE IVP PRN (10:56)
[2025-01-24] MEDS: traMADol 50 MG TAB PO STA (12:10)
[2025-01-24 14:02] VITALS: BP 138/84; PULSE 93; RESP 16
--- NOTE | 2025-01-24 20:20 | P.OP ---
Date of Procedure: 01/24/25 Preoperative Diagnosis: 1. S/P L5-S1 TLIF WITH CONTINUED FACETOGENIC PAIN 2. LOW BACK PAIN, MECHANICAL Postoperative Diagnosis: 1. S/P L5-S1 TLIF WITH CONTINUED FACETOGENIC PAIN 2. LOW BACK PAIN, MECHANICAL Procedure(s) Performed: 1. BILATERAL L4-5 AND L5-S1 MEDIAL BRANCH TRANSECTION UNDER DIRECT VISUALIZATION NOTE: ENDO S/P FUSION Implants: NONE Anesthesia: GETA Surgeon: Juan Carlos Rowland Jig Box Operator #1: Norah Durbin (WAS PRESENT AND ASSISTED WITH ALL ASPECTS OF THE CASE FROM POSITION TO DRESSING PLACEMENT) Estimated Blood Loss (ml): 2 IV fluids (ml): 500 Urine output (ml): 0 Pathology: none sent Condition: stable Disposition: PACU Indications for Procedure: 34-year-old male, Shamir Campos, presents for a follow-up evaluation of chronic lumbar pain following recent interventional procedures. Patient underwent L5-S1 LANETTE with no reported relief and L5-S1 facet block injection with noted symptomatic improvement. He continues to experience low back pain radiating to bilateral lower extremities (right > left) with associated paresthesias and progressive lower extremity weakness resulting in multiple falls. Patient has history of lumbar surgery (July 2023) with imaging showing postsurgical changes at L4-L5 with moderate right neural foraminal stenosis. Physical examination reveals paralumbar tenderness, restricted lumbar ROM, mild motor weakness (4/5) in bilateral lower extremities, and right calf atrophy. Assessment indicates L4-S1 facet arthrosis with mechanical low back pain. Treatment plan includes L4-S1 medial branch transection, prescription for Lyrica 150mg, continuation of home exercise program, and pre-operative evaluation. Description of Procedure: BILATERAL L4-S1 ENDOSCOPIC MBT The patient was seen and examined in the preoperative area. All preoperative protocols were followed. Informed consent was obtained, risks and benefits of the procedure were discussed at length. Risks including bleeding, infection, damage to the surrounding tissue and risk of reoperation were discussed with the patient. Risk of anesthesia up to and including was discussed with the patient. These are outlined in the risk review. They were willing to accept these risks and all of the risks of surgery. The patient was given a weight- based dose of antibiotics in the form of 2 g Ancef. The patient was seen and evaluated by the anesthesia team who deemed them fit for surgery. The sites were marked, the patient was willing to proceed with the procedure. The patient was transferred to the operative suite by the Department of anesthesia. They were then drifted off to sleep by the department anesthesia and GETA was performed. The patient tolerated this well. Once confirmation of lines and ventilation the patient was transferred to a prone Phil table very carefully. All bony prominences including wrists, elbows, axilla, chest, hips, and thighs, and feet were padded very well. Special attention was paid to the genitalia and these were padded accordingly. SCDs were placed on bilateral lower extremities and were connected. Arms were well padded and placed on arm boards up and out in the 90/90 position. Once in position, again we confirmed good ventilation capabilities and that lines were running appropriately. The patient's lumbar spine was then exposed. 1010s were placed outlining the in cision sites. Standard alcohol was used to clean the incision sites and allowed to dry. C-arm was used to biomark the patient and confirm levels for incision which were marked with a skin marker. Operative briefing was performed with all teams and everyone in agreement to proceed. The patient was then prepped and draped in a normal sterile fashion. Timeout was then performed and all parties were in agreement with the procedure to be performed. Starting on the right side, an 18-gauge needle was used to localize the L4-L5 and L5-S1 facet joints. Lidocaine 2% with epi and Marcaine .25% w/o placed in these areas. Skin nicks were then made and a trocar for the scope was entered. X-ray used to localize these areas. Once this was confirmed, accessory portals were made and trocars placed through here. We then used the ArthroCare wand to skeletonize the transverse processes on the right-hand side at L4-L5 and L5-S1 as well as sacral ala. Hardware was identified at L5 and S1 and scar tissues we re removed from this and the mamillary process as well as TVP and sacral alar area. This was then followed out medially until the L4-L5 and L5-S1 facet joints medially and mamillary processes were identified as well as the ligaments in these areas. Nerves were identified at L4-L5 and L5-S1 levels and visualized directly when they were transected. ArthroCare wand was then used to burn the areas to retract the nerve ends. The procedure was then repeated on the left side in identical fashion at L4-L5 and L5-S1 levels. The scope was lavaged with pictures taken in these areas and inspected; there was no damage or issues and no bleeding. The scopes were removed. The wounds were then cleaned and simple stitches were placed in the skin and they were glued. These were then dressed sterilely with Band-Aids. The patient was transferred back to their hospital bed atraumatically. Patient was then awakened and extubated by the department of anesthesia having tolerated the procedure very well with no complications. They were transferred to the postoperative care unit in stable condition.
== END 2025-01-24 14:25 | disposition home or self-care (01) ==
LOC: OR 07:46
PROVIDERS: ATTEND Orthopaedic Surgery
DX: M47.27 Other spondylosis with radiculopathy, lumbosacral region (principal); M47.26 Other spondylosis with radiculopathy, lumbar region; M48.061 Spinal stenosis, lumbar region without neurogenic claudication; Z79.890 Hormone replacement therapy; Z79.899 Other long term (current) drug therapy; Z98.1 Arthrodesis status; R29.6 Repeated falls
CPT/HCPCS: 64772 ×2; 72100; J2250; J0330; J1100; J2710; J0690; J2405; J2003; J3010; J1885; J2704; J1171; J0665; J1596